=== PATIENT | female | born 1980 | race Caucasian/White ===

== ENCOUNTER 2016-10-28 10:03 | Emergency (ER) | payer BC ==
[~2016-10-28] VITALS: Ht 170.2 cm; Wt 100.2 kg
[~2016-10-28 10:03] MED LIST: ELAVIL25 MG PO; PLAQUENIL200 MG PO; PREDNISONE5 MG PO; TOPAMAX100 MG PO
[2016-10-28] MEDS ORDERED: ULTRAM50 MG PO (12:19)
[2016-10-28] MEDS ORDERED: ZOFRAN ODT4 MG PO (12:19)
[2016-10-28 12:43] VITALS: BP 152/92
== END 2016-10-28 12:44 | disposition home or self-care (01) ==
LOC: EME 10:03
DX: S09.90XA Unspecified injury of head, initial encounter (principal); R42 Dizziness and giddiness; R11.0 Nausea; W21.07XA Struck by softball, initial encounter; Y93.64 Activity, baseball; Z88.2 Allergy status to sulfonamides
CPT/HCPCS: 70150; 99281; 99284